=== PATIENT | female | born 1990 | race Hispanic/Latino ===

== ENCOUNTER 2017-10-26 00:23 | Emergency (ER) | payer OTHER ==
[2017-10-26 00:40] VITALS: BP 104/78; RESP 17; TEMP 98; O2SAT 98
--- NOTE | 2017-10-26 01:04 | ED PDOC ---
HPI: Allergic Reaction Time Seen by Provider: 10/26/17 00:54 Chief Complaint (Nursing): Allergic Reaction Chief Complaint (Provider): allergic reaction History Per: Patient History/Exam Limitations: no limitations Onset/Duration Of Symptoms: Hrs Current Symptoms Are (Timing): Still Present Possible Cause: Food Associated Symptoms: Trouble Swallowing, Itching Home/EMS Treatment: Benadryl Additional History Per: Patient Additional Complaint(s): 27 y/o female presents for evaluation of acute allergic reaction one hour ago. Patient states she ate BBQ chips tonight that had pea-ingredients in it and immediately began developing itching to back of throat and difficulty swallowing. Patient states she took two Benadryl tablets without improvement of symptoms, so she took a third and came to ED. Denies facial swelling, difficulty speaking, cough, shortness of breath, vomiting, changes in bowel movements. Past Medical History Reviewed: Historical Data, Nursing Documentation, Vital Signs Vital Signs: Last Vital Signs Temp 98 F 10/26/17 00:37 Pulse 126 H 10/26/17 00:37 Resp 17 10/26/17 00:37 BP 104/78 10/26/17 00:37 Pulse Ox 98 10/26/17 00:37 - Medical History PMH: No Chronic Diseases - Surgical History Surgical History: No Surg Hx - Family History Family History: States: No Known Family Hx - Living Arrangements Living Arrangements: Alone - Home Medications Home Medications: Ambulatory Orders Medication Instructions Recorded Famotidine [Pepcid] 20 mg PO BID #8 tab 10/26/17 Prednisone 50 mg PO DAILY #4 tablet 10/26/17 - Allergies Allergies/Adverse Reactions: Allergies Allergy/AdvReac Type Severity Reaction Status Date / Time nut - unspecified Allergy SHORTNESS Verified 10/26/17 00:41 OF BREATH peas Allergy SHORTNESS Verified 10/26/17 00:41 OF BREATH Penicillins Allergy RASH Verified 10/26/17 00:41 Review of Systems ROS Statement: Except As Marked, All Systems Reviewed And Found Negative ENT: Positive for: Throat Pain Physical Exam - Reviewed Nursing Documentation Reviewed: Yes Vital Signs Reviewed: Yes - Physical Exam Appears: Positive for: Well, Non-toxic, No Acute Distress Head Exam: Positive for: ATRAUMATIC, NORMAL INSPECTION, NORMOCEPHALIC Skin: Positive for: Normal Color Eye Exam: Positive for: Normal appearance ENT: Positive for: Normal ENT Inspection Cardiovascular/Chest: Positive for: Regular Rate, Rhythm Respiratory: Positive for: Normal Breath Sounds Gastrointestinal/Abdominal: Positive for: Normal Exam Back: Positive for: Normal Inspection Extremity: Positive for: Normal ROM Neurologic/Psych: Positive for: Alert, Oriented - ECG O2 Sat by Pulse Oximetry: 98 - Progress ED Course And Treament: IV solumedrol, IV pepcid 2:15 Patient states she is feeling better Patietn educated on findings, discharged with rx Pepcid, Prednisone Advised to continue BEnadryl PRN. Follow up fabrication and assembly supervisor Return precautions given. Disposition - Clinical Impression Clinical Impression: Allergic reaction - Patient ED Disposition Is Patient to be Admitted: No Counseled Patient/Family Regarding: Diagnosis, Need For Followup, Rx Given - Disposition Disposition: Routine/Home Disposition Time: 02:15 Condition: IMPROVED Prescriptions: Famotidine [Pepcid] 20 mg PO BID #8 tab Prednisone 50 mg PO DAILY #4 tablet Instructions: Food Allergy (ED) Forms: [employer] (Vietnamese)
[2017-10-26 02:22] VITALS: PULSE 79
--- NOTE | 2017-10-26 10:48 | CARD ---
APPROVED REPORT EKG Measurement Heart [id number] <Conclusion> Sinus tachycardia Otherwise normal ECG
== END 2017-10-26 02:18 | disposition home or self-care (01) ==
LOC: H.ER 00:23
DX: T78.40XA Allergy, unspecified, initial encounter (principal); Z88.0 Allergy status to penicillin
CPT/HCPCS: 81025; 93005; 96374; 96375; 99282; J2930

== ENCOUNTER 2018-05-18 03:30 | Emergency (ER) | payer OTHER ==
--- NOTE | 2018-05-18 05:34 | ED PDOC ---
HPI: Female Pain <Jeromy Estrada Pat - Last Filed: 05/18/18 08:13> Chief Complaint (Provider): pelvic pain History Per: Patient History/Exam Limitations: no limitations Onset/Duration Of Symptoms: Days (x5), Worse Since (this morning) Current Symptoms Are (Timing): Still Present Additional Complaint(s): Patient complains of non-radiating, left-sided pelvic pain associated with urine urgency ongoing for 5 days. Patient states pain became worse this morning and exacerbated with sitting or positional changes. Otherwise: (-) vomiting, (- ) diarrhea, (-) nasuea, (-) dysuria, (-) vaginal discharge, or (-) dyspareunia. Patient states she was on oral contraceptive for 2 months but discontinued it 1 month ago. Menses began 2 days ago (05/16/18). <Luci Alex PA-C - Last Filed: 05/19/18 23:19> Time Seen by Provider: 05/18/18 03:37 Chief Complaint (Nursing): Abdominal Pain Past Medical History Vital Signs: Last Vital Signs Temp 98.1 F 05/18/18 08:02 Pulse 97 H 05/18/18 08:02 Resp 15 05/18/18 08:02 BP 99/65 L 05/18/18 08:02 Pulse Ox 96 05/18/18 08:11 <TuanJeromy muñoz Pat - Last Filed: 05/18/18 08:13> Reviewed: Historical Data, Nursing Documentation, Vital Signs Vital Signs: Last Vital Signs Temp 98.1 F 05/18/18 03:39 Pulse 106 H 05/18/18 03:39 Resp 18 05/18/18 03:39 BP 108/69 05/18/18 03:39 Pulse Ox 96 05/18/18 03:39 - Medical History PMH: No Chronic Diseases - Surgical History Surgical History: No Surg Hx - Family History Family History: States: Unknown Family Hx <Luci Alex PA-C - Last Filed: 05/19/18 23:19> - Home Medications Home Medications: Ambulatory Orders Medication Instructions Recorded Famotidine [Pepcid] 20 mg PO BID #8 tab 10/26/17 Prednisone 50 mg PO DAILY #4 tablet 10/26/17 Ibuprofen [Motrin] 600 mg PO TID 7 Days tab 05/18/18 - Allergies Allergies/Adverse Reactions: Allergies Allergy/AdvReac Type Severity Reaction Status Date / Time nut - unspecified Allergy SHORTNESS Verified 10/26/17 00:41 OF BREATH peas Allergy SHORTNESS Verified 10/26/17 00:41 OF BREATH Penicillins Allergy RASH Verified 10/26/17 00:41 Review of Systems ROS Statement: Except As Marked, All Systems Reviewed And Found Negative Gastrointestinal: Negative for: Nausea, Vomiting, Diarrhea Genitourinary Female: Positive for: Hematuria, Pelvic Pain (left-sided with urgency). Negative for: Dysuria, Vaginal Discharge, Other (dyspareunia) <Luci Alex PA-C - Last Filed: 05/19/18 23:19> Physical Exam - Reviewed Nursing Documentation Reviewed: Yes Vital Signs Reviewed: Yes - Physical Exam Comments: GENERAL APPEARANCE: Patient is awake, alert, oriented x 3, in mild painful distress. SKIN: Warm, dry; (-) cyanosis. EYES: (-) conjunctival pallor, (-) scleral icterus. ENMT: Mucous membranes moist. NECK: (-) tenderness, (-) stiffness, (-) lymphadenopathy. CHEST AND RESPIRATORY: (-) rales, (-) rhonchi, (-) wheezes; breath sounds equal bilaterally. HEART AND CARDIOVASCULAR: (-) irregularity; (-) murmur, (-) gallop. ABDOMEN AND GI: (-) distention. Bowel sounds active; (+) tenderness in left pelvis, (-) guarding, (-) rebound, (-) palpable masses, (-) CVA tenderness. EXTREMITIES: (-) deformity, (-) edema, (+) distal pulses. NEURO AND PSYCH: Mental status as above; (-) focal findings. <Luci Alex PA-C - Last Filed: 05/19/18 23:19> - Laboratory Results Result Diagrams: 05/18/18 05:09 05/18/18 05:09 <Jeromy Estrada - Last Filed: 05/18/18 08:13> - Laboratory Results Result Diagrams: 05/18/18 05:09 05/18/18 05:09 - ECG O2 Sat by Pulse Oximetry: 96 (RA) Pulse Ox Interpretation: Normal <Luci Alex PA-C - Last Filed: 05/19/18 23:19> Medical Decision Making Medical Decision Making: Time: 0700 -- Patient endorsed to Dr. Padron by Dr. Estrada, pending official [facility] read and possible CT. Scribe Attestation: Documented by Leonie Quigley acting as a scribe for Dr. Jeromy Estrada MD. Provider Scribe Attestation: All medical record entries made by the Scribe were at my direction and personally dictated by me. I have reviewed the chart and agree that the record accurately reflects my personal performance of the medical decision making for this patient. I have also personally directed, reviewed, and agree with the discharge instructions and disposition. <Jeromy Estrada - Last Filed: 05/18/18 08:13> Medical Decision Making: Initial Impression: Pelvic pain Initial Plan: * CMP * Urine * Urine dipstick * CBC * Chlamydia/GC RNA * Toradol 30mg IVP * US transvaginal Udip (-) Uhcg (-) 0515 Patient went to US. 0545 CBC, CMP wnl. US results pending at this time, patient laying in bed comfortably, in no acute distress. Scribe Attestation: Documented by Magdalene Ford, acting as a scribe for Luci Alex PA-C. Provider Scribe Attestation: All medical record entries made by the Scribe were at my direction and personally dictated by me. I have reviewed the chart and agree that the record accurately reflects my personal performance of the history, physical exam, medical decision making, and the department course for this patient. I have also personally directed, reviewed, and agree with the discharge instructions and disposition. <Luci Alex PA-C - Last Filed: 05/19/18 23:19> Disposition <Jeromy Estrada - Last Filed: 05/18/18 08:13> - Patient ED Disposition Is Patient to be Admitted: Transfer of Care (Case endorsed to Dr. Padron at 0700 pending US results.) Counseled Patient/Family Regarding: Studies Performed, Diagnosis - Disposition Disposition: Transfer of Care (Case endorsed to Dr. Padron at 0700 pending US results and final disposition.) Disposition Time: 07:00 <Luci Alex PA-C - Last Filed: 05/19/18 23:19> - Clinical Impression Clinical Impression: Pelvic pain - Disposition Referrals: [facility] [Outside] - 05/20/18 Condition: STABLE Additional Instructions: Return if not better in 3 days. 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 <Luci Alex PA-C - Last Filed: 05/19/18 23:19>
[2018-05-18 05:36] LABS: BASO # 0.1 K/uL (0.0-0.2); EOS # 0.5 K/uL (0.0-0.7); EOS % 5.6 % (0.0-4.0); HEMOGLOBIN 14.6 g/dL (12.0-16.0); LYMPH # 3.3 K/uL (1.0-4.3); LYMPH % 39.4 % (20.0-40.0); MEAN CELL VOLUME 89.6 fl (81.0-99.0); MEAN CORPUSCULAR HEMOGLOBIN 30.6 pg (27.0-31.0); MEAN CORPUSCULAR HGB CONC 34.1 g/dL (33.0-37.0); MEAN PLATELET VOLUME 10.3 fl (7.2-11.7); MONO # 0.5 K/uL (0.0-0.8); MONO % 5.8 % (0.0-10.0); NEUT % 48.2 % (50.0-75.0); NRBC % 0.1 % (0.0-0.0); RBC 4.77 Mil/uL (3.80-5.20); RED CELL DISTRIBUTION WIDTH 12.9 % (11.5-14.5); WHITE BLOOD COUNT 8.4 K/uL (4.8-10.8)
[2018-05-18 05:48] LABS: ALB/GLOB RATIO 1.7 (1.0-2.1); ALT/SGPT 23 U/L (9-52); AST/SGOT 31 U/L (14-36); BLOOD UREA NITROGEN 8 mg/dl (7-17); CALCIUM 9.5 mg/dL (8.4-10.2); GFR NON-AFRICAN AMERICAN > 60
--- NOTE | 2018-05-18 07:39 | ED PDOC ---
- Laboratory Results Result Diagrams: 05/18/18 05:09 05/18/18 05:09 Interpretation Of Abn Labs: no acute - ECG O2 Sat by Pulse Oximetry: 96 (RA) Pulse Ox Interpretation: Normal - CT Scan/US US Other Rad Studies (CT/US): Read By Radiologist Other Rad Interpretation: no acute - Progress ED Course And Treament: 811: Will Ct for further eval. US neg. 1159: No acute findings. Resting. Tolerated PO. Fu with pcp. AAOx3. Pain free. Medical Decision Making Medical Decision Making: Time: 07 -- Patient endorsed to me by Dr. Estrada. Patient is a 27 y/o female who presents to the ED complaining of left lower quadrant pain and left pelvic pain , pending official [facility] read and possible CT. Time: 745 TRANSVAGINAL US RESULTS FINDINGS: Uterus/cervix: Unremarkable. No myometrial mass. Endometrial stripe measures 4 mm in thickness. Right ovary: Unremarkable. No mass. Normal blood flow. Left ovary: Unremarkable. No mass. Normal blood flow. Free fluid: No free fluid. IMPRESSION: Normal pelvic ultrasound. No torsion. Thank you for allowing us to participate in the care of your patient. Dictated and Authenticated by: Calin Olivo MD 05/18/2018 7:46 AM Eastern Time ([place] & [place]) Time: 808 Plan: -- CT Abd/Pelvis PO & IV Contrast Scribe Attestation: Documented by Leonie Quigley acting as a scribe for Dr. Jose Padron MD. Provider Scribe Attestation: All medical record entries made by the Scribe were at my direction and personally dictated by me. I have reviewed the chart and agree that the record accurately reflects my personal performance of the history, physical exam, medical decision making, and the department course for this patient. I have also personally directed, reviewed, and agree with the discharge instructions and disposition. Disposition - Clinical Impression Clinical Impression: Pelvic pain - POA Present On Arrival: None - Disposition Referrals: [facility] [Outside] - 05/20/18 Disposition: Routine/Home Disposition Time: 12:00 Condition: STABLE Additional Instructions: Return if not better in 3 days. Prescriptions: Ibuprofen [Motrin] 600 mg PO TID 7 Days tab Instructions: Acute Pelvic Pain (DC) Forms: [email or web address] (Cuban)
[2018-05-18] MEDS: Iohexol 240 (50 ml) PO ONE ×2 (08:53→09:12)
[2018-05-18] MEDS ORDERED: Iohexol 240 (50 ml) ONE (09:07)
--- NOTE | 2018-05-18 10:44 | US ---
Date of service: 05/18/2018 HISTORY: L pelvic pain, r/o torsion COMPARISON: None available. TECHNIQUE: The, color Doppler and spectral evaluation the pelvis performed transvaginally FINDINGS: UTERUS: Measures 6.4 x 4.0 x 2.6 cm. Anteverted. Normal in size and appearance. No fibroid or other mass lesion seen. ENDOMETRIUM: Measures 4 mm in diameter. Unremarkable. CERVIX: No cervical abnormality identified. RIGHT OVARY: Measures 3.7 x 2.9 x 2.1 cm. No solid mass. Normal flow. LEFT OVARY: Measures 3.4 x 2.6 x 2.8 cm. No solid mass. Normal flow. FREE FLUID: No significant free fluid noted. OTHER FINDINGS: None. IMPRESSION: Unremarkable pelvic ultrasound.
[2018-05-18] MEDS ORDERED: Sodium Chloride 0.9% 50 ML IV ONE (11:22)
[2018-05-18] MEDS ORDERED: Iohexol 300 100 ML IJ ONE (11:22)
--- NOTE | 2018-05-18 11:56 | CT ---
Date of service: 05/18/2018 PROCEDURE: CT Abdomen and Pelvis with contrast HISTORY: abd pain COMPARISON: None. TECHNIQUE: Contrast dose: 95 mL Omnipaque 300 Radiation dose: Total exam DLP = 228.1 mGy-cm. This CT exam was performed using one or more of the following dose reduction techniques: Automated exposure control, adjustment of the mA and/or kV according to patient size, and/or use of iterative reconstruction technique. FINDINGS: LOWER THORAX: Unremarkable. LIVER: Unremarkable. No gross lesion or ductal dilatation. GALLBLADDER AND BILE DUCTS: Unremarkable. PANCREAS: Unremarkable. No gross lesion or ductal dilatation. SPLEEN: Unremarkable. ADRENALS: Unremarkable. No mass. KIDNEYS AND URETERS: Unremarkable. No hydronephrosis. No solid mass. VASCULATURE: Unremarkable. No aortic aneurysm. BOWEL: Unremarkable. No obstruction. No gross mural thickening. APPENDIX: Normal appendix. PERITONEUM: Unremarkable. No free fluid. No free air. LYMPH NODES: Unremarkable. No enlarged lymph nodes. BLADDER: Unremarkable. REPRODUCTIVE: Unremarkable. BONES: No acute fracture. Limbus deformities of L4 and L5. OTHER FINDINGS: None. IMPRESSION: No acute abdominal pelvic pathology.
[2018-05-18 12:12] VITALS: BP 112/54; PULSE 84; RESP 16; TEMP 98.3
[2018-05-19 23:20] VITALS: O2SAT 96
== END 2018-05-18 12:11 | disposition home or self-care (01) ==
LOC: H.ER 03:30
DX: R10.2 Pelvic and perineal pain (principal); Z88.0 Allergy status to penicillin
CPT/HCPCS: 74177; 76830; 80053; 85025; 87491; 87591; 96374; 99284; J1885; Q9966; Q9967